=== PATIENT | male | born 1990 | race Caucasian/White ===

== ENCOUNTER 2017-04-23 11:26 | Inpatient (IN) | payer OTHER ==
[~2017-04-23] VITALS: Ht 187.9 cm; Wt 82.7 kg
[~2017-04-23 11:26] MED LIST: ATARAX,VISTARIL50 MG PO; CARBIDOPA/LEVOD1 TA1 PO; ZOFRAN 4 MG ED2 TAB PO
[2017-04-23 12:50] VITALS: BP 114/74
--- NOTE | 2017-04-23 12:52 | NUR ---
26 MALE year old [facility] admitted to room # 504-2 for stabilization. Reports an addiction to IV HEROIN last used 24 hours prior to admission. Compliant with admission procedure. Patient denies any anxiety, but is unable to sit still, taps toes to floor continuously, looks about room, unable to focus eyes on nurse during interview. See assessment forms for additional information about patient status.
--- NOTE | 2017-04-23 13:05 | NUR ---
URINE SENT TO LAB
[2017-04-23 13:09] LABS: BASO % 0.3 % (0.0-1.0); EOS # 0.3 10*3/uL (0.0-0.4); EOS % 2.8 % (1.0-4.0); HEMATOCRIT 43.3 % (42.0-52.0); HEMOGLOBIN 14.3 g/dl (14.0-18.0); LYMPH # 3.2 10*3/uL (1.3-4.4); LYMPH % 33.9 % (27.0-41.0); MEAN CELL VOLUME 85.1 fl (80.0-94.0); MEAN CORPUSCULAR HGB 28.1 pg (27.0-31.0); MEAN PLATELET VOLUME 9.5 fl (9.6-12.3); MONO # 0.7 10*3/uL (0.1-1.0); MONO % 7.8 % (3.0-9.0); NEUT # 5.2 10*3/uL (2.3-7.9); NEUT % 54.7 % (47.0-73.0); PLATELET COUNT AUTOMATED 312 10*3/uL (130-400); RED BLOOD COUNT 5.09 10*6/uL (4.50-5.90); RED CELL DISTRI WIDTH 13.5 % (0-14.5); WHITE BLOOD COUNT 9.5 10*3/uL (4.8-10.8)
[2017-04-23] MEDS ORDERED: TRAZODONE100 MG PO (13:09)
[2017-04-23] MEDS ORDERED: DEPAKOTE500 MG PO ×2 (13:10→13:11)
--- NOTE | 2017-04-23 13:10 | NUR ---
PT IS REFUSING WOUND MEASUREMENTS AND PICTURES OF A SMALL SKIN TEAR ON LEFT ARM. WOUND CARE PROCEDURES/POLICIES EXPLAINED TO PT. PT DECLINED.
[2017-04-23 13:16] LABS: BILIRUBIN NEGATIVE (NEGATIVE); BLOOD NEGATIVE (NEGATIVE); CLARITY CLEAR (CLEAR); COLOR YELLOW (YELLOW); GLUCOSE NEGATIVE (NEGATIVE); KETONE NEGATIVE (NEGATIVE); LEUKO ESTERASE NEGATIVE (NEGATIVE); NITRITE NEGATIVE (NEGATIVE); UROBILINOGEN 0.2 E.U./dl (0.2-1.0)
--- NOTE | 2017-04-23 13:21 | NUR ---
D/C PLANNING: PATIENT PLAN OF ACTION IS OUPATIENT TREATMENT AT [facility] IN [place] FOR SUBUTEX. SARA MEZA BEEF RIBBER
[2017-04-23 13:24] LABS: ALBUMIN 3.7 gm/dl (3.1-4.5); ALKALINE PHOSPHATASE 94 U/L (45-117); BUN 11 mg/dl (7-24); CHLORIDE 103 mmol/L (98-107); CREATININE 0.75 mg/dL (0.70-1.30); POTASSIUM 4.3 mmol/L (3.5-5.1); SGOT/AST 15 IU/L (3-35); SGPT/ALT 21 U/L (12-78); SODIUM 137 mmol/L (136-145); TOTAL PROTEIN 8.3 gm/dL (6.4-8.2)
[2017-04-23 13:25] LABS: ETHYL ALCOHOL < 3.0 mg/dl (<3)
[2017-04-23 16:00] VITALS: BP 118/69
[2017-04-23 20:00] VITALS: BP 114/61
--- NOTE | 2017-04-23 20:00 | NUR ---
PT. AWAKE, ALERT AND ORIENTED X 3 AT THIS TIME. PT. LAYING IN BED UPON ENTERING. PEERLA, S1S2, LUNGS CLEAR T/O, BOWELS NORMO X 4, HRR, PPP, NO EDEMA. PT. CURRENTLY DENIES SOB, CP, OR PAIN. CALL LIGHT WITHIN REACH, BED IN LOWEST POSITION, WHEELS LOCKED.
--- NOTE | 2017-04-23 21:38 | NUR ---
PT. EXPERIENCING ANXIETY AND URGE TO SMOKE, GIVEN PRN VISTARIL AND NICOTROL.
--- NOTE | 2017-04-23 22:01 | NUR ---
PT. ASSESSED FOR PRN EFFECTIVENESS, PER PT. ANXIETY AND URGE TO SMOKE RELIEVED. REQUESTED PRN TRAZODONE THAT HE TAKES AT HOME TO SLEEP. WILL MONITOR FOR EFFECTIVENESS.
--- NOTE | 2017-04-23 23:30 | NUR ---
PT. CURRENTLY SLEEPING.
[2017-04-24] VITALS: BP 112/61
[2017-04-24 04:00] VITALS: BP 102/59
[2017-04-24 08:00] VITALS: BP 106/65
--- NOTE | 2017-04-24 11:59 | NUR ---
Nutritional Support Services Note: Skin tear noted. [facility] vision pt. Appetite is good, regular diet as ordered. No nutrition intervention needed at this time. Esha Hargrove
[2017-04-24 12:00] VITALS: BP 124/73
[2017-04-24 16:00] VITALS: BP 114/73
--- NOTE | 2017-04-24 16:04 | NUR ---
D/C PLANNING: PATIENT IS WANTING CORRECTION RESIDENTIAL. PATIENT IS PLANNING ON GOING TO TEEN [place] FOR HER AFTERCARE PLAN. SARA TRAN B.A. SHEET ROCK INSTALLER
--- NOTE | 2017-04-24 17:32 | NUR ---
PT LEFT AMA. DR. LEONARD NOTIFIED.
--- NOTE | 2017-04-24 17:36 | NUR ---
PT LEFT MD [facility]ATH[facility] AND NURSING OVERHEAD IRRIGATOR NOTIFIED
== END 2017-04-24 17:36 | disposition left against medical advice (07) | DRG 894 ==
LOC: 5E 11:26
PROVIDERS: Hospitalist; ADMIT Internal Medicine
DX: F11.23 Opioid dependence with withdrawal (principal); D64.9 Anemia, unspecified; F31.9 Bipolar disorder, unspecified; F41.9 Anxiety disorder, unspecified; F14.90 Cocaine use, unspecified, uncomplicated; Z53.21 Procedure and treatment not carried out due to patient leaving prior to being seen by health care provider; Z71.6 Tobacco abuse counseling; Z72.0 Tobacco use; Z79.899 Other long term (current) drug therapy; Z83.3 Family history of diabetes mellitus